=== PATIENT | male | born 1995 ===

== ENCOUNTER 2017-06-20 03:25 | Outpatient (CLI) | payer OTHER ==
[2017-06-20] MEDS ORDERED: Gadobenate Dimeglumine 529 MG/1 ML (20ML VIAL) ONE (14:10)
--- NOTE | 2017-06-20 18:19 | RAD ---
ARTHROGRAM LEFT SHOULDER: 06/20/17 HISTORY: 22-year-old male with persistent left shoulder pain after weightlifting injury. TECHNIQUE: Signed informed consent obtained. Patient placed supine on the fluoroscopy table. Anterior skin of le ft shoulder prepped and draped in the usual sterile fashion. 25 gauge needle used to apply buffered l idocaine superficially and deeply. Under brief, intermittent fluoroscopy, 22 gauge spinal needle was advanced into the intracapsular space of the glenohumeral joint space. A total of 10 mL of normal sa line solution containing iodinated contrast, Multihance gadolinium based contrast agent, lidocaine, a nd epinephrine, was injected (mixture provided by pharmacy). Needle was removed. Patient tolerated th e procedure well. No complications. FINDINGS: [employer] views demonstrate no abnormality. Post injection images demonstrate good distention of left jerod ulder joint capsule by the contrast material. IMPRESSION: 1. Successful left shoulder arthrogram. 2. See separate report of the MR arthrogram of the left shoulder. POS: [facility]
--- NOTE | 2017-06-20 19:04 | MRI ---
MR ARTHROGRAM LEFT SHOULDER 06/20/17 PROVIDED CLINICAL HISTORY: Left shoulder pain. FINDINGS: The components of the rotator cuff appear intact. The long head biceps tendon appears intact and norm ally located. The glenoid labrum and glenohumeral articular cartilage demonstrate no definite evidenc e for tear. No focal concerning regional marrow or muscular signal abnormality is apparent. IMPRESSION: No definite evidence for glenoid labral or rotator cuff tear. POS: OFF
== END 2017-06-20 03:26 | disposition home or self-care (01) ==
LOC: BICRAD 03:25 → RAD 03:26
PROVIDERS: ATTEND Family Medicine Sports Medicine
DX: S43.402A Unspecified sprain of left shoulder joint, initial encounter (principal)
CPT/HCPCS: 23350; A9579